=== PATIENT | male | born 1945 | race Hispanic/Latino ===

== ENCOUNTER 2018-06-19 07:15 | Outpatient (CLI) | payer MEDICARE, BC | END 2018-06-19 07:16 | disposition home or self-care (01) | LOC: LAB 07:15 ==

== ENCOUNTER 2018-07-21 13:47 | Outpatient (CLI) | payer MEDICARE, BC | END 2018-07-21 13:48 | disposition home or self-care (01) | LOC: RAD 13:47 ==